=== PATIENT | female | born 1955 | race Caucasian/White ===

== ENCOUNTER 2020-10-19 14:58 | Observation (INO) | payer OTHER ==
[~2020-10-19] VITALS: Ht 167.6 cm; Wt 95.7 kg
[2020-10-19 15:05] VITALS: BP 117/72
[2020-10-19 16:00] LABS: ABSOLUTE NEUTROPHILS 14.2 thou/uL (1.4-8.2); BASOPHILS 0.3 % (0.0-2.0); EOSINOPHILS 0.2 % (0.0-3.0); HEMATOCRIT 35.5 % (37.0-47.0); HEMOGLOBIN 11.3 gm/dL (12.0-15.0); LYMPHOCYTES 4.6 % (24.0-44.0); MCHC 31.7 g/dL (28.0-37.0); MCV 88.4 fL (80.0-100.0); MONOCYTES 6.4 % (1.0-8.0); PLATELET COUNT 260 thou/uL (150-400); POLYS 88.5 % (36.0-66.0); RBC 4.01 mil/uL (4.20-5.00); RDW 14.9 % (10.5-14.5); WBC 16.1 thou/uL (4.0-11.0)
[2020-10-19 16:17] LABS: CALCIUM 8.8 mg/dL (8.5-10.1); CREATININE 0.9 mg/dL (0.6-1.0); POTASSIUM 4.3 mmol/L (3.5-5.1)
[2020-10-19 16:32] LABS: ALBUMIN 3.4 g/dL (3.4-5.0); TOTAL BILIRUBIN 0.5 mg/dL (0.2-1.0); TOTAL PROTEIN 7.1 g/dL (6.4-8.2)
[2020-10-19 17:46] LABS: URINE BILIRUBIN NEGATIVE (Negative); URINE BLOOD NEGATIVE (Negative); URINE CLARITY CLEAR; URINE COLOR YELLOW; URINE GLUCOSE-RANDOM* NEGATIVE (Negative); URINE KETONES 1+ (Negative); URINE NITRITE-REFLEX NEGATIVE (Negative); URINE PROTEIN (DIPSTICK) TRACE (Negative); URINE SPECIFIC GRAVITY 1.015 (1.005-1.035); URINE UROBILINOGEN 0.2 E.U./dl (0.2-1.0)
[2020-10-19 17:57] LABS: URINE LEUKOCYTES-REFLEX 3+ (Negative)
[2020-10-19 18:24] LABS: SQUAMOUS 0-3 Few /LPF (0-3)
[2020-10-19 18:25] LABS: BACTERIA-REFLEX 1-9 Few /HPF (None Seen); CASTS None Seen /LPF (None Seen); CRYSTALS None Seen /LPF (None Seen); URINE RBC 1-2 Rare /HPF (NONE SEEN); URINE WBC-REFLEX 6-15 Few /HPF (0-5)
[2020-10-19 19:12] VITALS: BP 124/64
[2020-10-19 19:41] LABS: MAGNESIUM 1.6 mg/dL (1.8-2.4); PHOSPHORUS 2.5 mg/dL (2.6-4.7)
[2020-10-19] MEDS ORDERED: LIPITOR 40 MG T40 M1 PO (20:09)
[2020-10-19] MEDS ORDERED: CARVEDILOL12.5 MG PO (20:09)
[2020-10-19] MEDS ORDERED: BASAGLAR K100 UNIT/1 SUBQ (20:09)
[2020-10-19] MEDS ORDERED: ESCITALOPRAM OX20 MG PO (20:09)
[2020-10-19] MEDS ORDERED: ASPIRIN EC325 M1 PO (20:10)
[2020-10-19] MEDS ORDERED: IRBESARTAN75 MG PO (20:10)
[2020-10-19] MEDS ORDERED: METFORMIN HCL1000 MG PO (20:10)
[2020-10-19 20:12] VITALS: BP 121/65
[2020-10-19 20:25] VITALS: BP 108/63
[2020-10-20] VITALS (7 sets, daily range): BP systolic 105–118; BP diastolic 41–66
[2020-10-20 03:59] LABS: HEMATOCRIT 30.1 % (37.0-47.0); HEMOGLOBIN 9.9 gm/dL (12.0-15.0); MCH 29.3 pg (26.0-34.0); MCV 88.7 fL (80.0-100.0); RBC 3.39 mil/uL (4.20-5.00); RDW 14.6 % (10.5-14.5); WBC 12.4 thou/uL (4.0-11.0)
--- NOTE | 2020-10-20 03:59 | NUR ---
PT ADMITTED TO ROOM 209 FROM ER, NO C/O PAIN IV FLUIDS STARTED AND MEDICATIONS GIVEN, PT UP ADLIB TO BR INDEPENDENTLY WITH OUT ANY DIFFICULTY, VSS, WILL CON'T TO MONITOR PER PPOC.
[2020-10-20 04:03] LABS: CALCIUM 8.2 mg/dL (8.5-10.1); POTASSIUM 4.2 mmol/L (3.5-5.1)
--- NOTE | 2020-10-20 12:48 | 2DMMODE ---
[facility] [address] [place] [address] 2 D/M-MODE ECHOCARDIOGRAM Name: LIZ SHAFER Room #: 209-P [facility] M.R.#: [id number] Admission: 10/19/20 Attend Phys: Shagufta Love MD Discharge: Date of : 55 Report #: [id number] THIS REPORT FOR: cc: SHIRA GROVES Physician not on staff Zaire Freeman MD ~ APPROVED REPORT Study performed: 10/20/2020 09:21:15 EXAM: Comprehensive 2D, Doppler, and color-flow Echocardiogram Patient Location: Bedside Room #: 209 Status: on-call BSA: 2.05 HR: 96 bpm BP: 118/54 mmHg Rhythm: NSR Other Information Study Quality: Adequate Risk Factors: Cardiac Risk Factors: Hyperlipidemia, DM Indications ICD: Congestive Heart Failure Elevated Troponin Cardiomyopathy 2D Dimensions IVSd: 8.82 (7-11mm) LVOT Diam: 20.00 (18-24mm) LVDd: 55.69 mm PWd: 9.63 (7-11mm) Ascending Ao: 29.04 (22-36mm) LVDs: 44.86 (25-40mm) Aortic Root: 26.06 mm LV Single Plane 4CH: 51.16 % LV Single Plane 2CH: 46.58 % Biplane EF: 45.5 % Volumes Left Atrial Volume (Systole) Single Plane 4CH: 66.70 mL Single Plane 2CH: 62.[address] [facility] [address] [place] [address] 2 D/M-MODE ECHOCARDIOGRAM Name: LIZ SHAFER Petty Room #: 209-P [facility] IN ..#: [id number] Admission: 10/19/20 Attend Phys: Shagufta Love, Discharge: Date of : 55 Report #: [id number] ESV Index: 34.00 mL/m2 Aortic Valve AoV Peak Go.: 1.49 m/s AO Peak Gr.: 8.85 mmHg LVOT Max P.35 mmHg LVOT Max V: 1.04 m/s CHRISTIN Vmax: 2.17 cm2 Mitral Valve E/A Ratio: 1.0 MV Decel. Time: 182.19 ms MV E Max Og.: 0.89 m/s MV A Og.: 0.85 m/s MV PHT: 52.84 ms IVRT: 62.28 ms TDI E/Lateral E': 14.83 E/Medial E': 12.71 Medial E' Og.: 0.07 m/s Lateral E' Og.: 0.06 m/s Pulmonary Valve PV Peak Og.: 1.00 m/s PV Peak Gr.: 3.99 mmHg Pulmonary Vein P Vein S: 0.73 m/s P Vein A: 0.31 m/s P Vein D: 0.58 m/s P Vein A Dur.: 90.0 msec P Vein S/D Ratio: 1.26 Tricuspid Valve TR Peak Og.: 2.62 m/s RAP Estimate: 7.00 mmHg TR Peak Gr.: 27.40 mmHg PA Pressure: 34.00 mmHg Left Ventricle The left ventricle is normal size. There is normal left ventricular wall thickness. Left ventricular systolic function is mildly decreased. LVEF is 45-50%. The left ventricular diastolic function is normal. Right Ventricle The right ventricle is normal size. The right ventricular systolic function is normal. Device lead is present in the right ventricle. Atria The left atrium size is normal. The right atrium size is normal. [facility] [address] [place] [address] 2 D/M-MODE ECHOCARDIOGRAM Name: LIZ SHAFER Room #: 209-P [facility] IN ..#: [id number] Admission: 10/19/20 Attend Phys: Shagufta Love, Discharge: Date of : 55 Report #: [id number] Device lead is present in the right atrium. Aortic Valve The aortic valve is normal in structure. No aortic regurgitation is present. There is no aortic valvular stenosis. Mitral Valve The mitral valve is normal in structure. Mild mitral regurgitation. No evidence of mitral valve stenosis. Tricuspid Valve The tricuspid valve is normal in structure. Trace tricuspid regurgitation. Pulmonary artery pressure is 34 mmHg. Pulmonic Valve The pulmonary valve is normal in structure. There is no pulmonic valvular regurgitation. Great Vessels The aortic root is normal in size. The ascending aorta is normal in size. IVC is normal in size and collapses >50% with inspiration. Pericardium There is no pericardial effusion. <Conclusion> The left ventricle is normal size. Left ventricular systolic function is mildly decreased. LVEF is 45-50%. The right ventricle is normal size. Device lead is present in the right ventricle. The left atrium size is normal. The right atrium size is normal. Device lead is present in the right atrium. The aortic valve is normal in structure. The mitral valve is normal in structure. Mild mitral regurgitation. The tricuspid valve is normal in structure. Trace tricuspid regurgitation. Pulmonary artery pressure is 34 mmHg. The pulmonary valve is normal in structure. [place] [id number] 2 D/M-MODE ECHOCARDIOGRAM Name: MINAL SHAFERCHRISTIAN Dove Room #: 209-P [facility] IN ..#: [id number] Admission: 10/19/20 Attend Phys: Shagufta Love, Discharge: Date of : 55 Report #: [id number] The aortic root is normal in size. There is no pericardial effusion. <ELECTRONICALLY SIGNED> By: Zaire Freeman MD 10/20/20 1248 1248 1248 Zaire Freeman MD /INF
--- NOTE | 2020-10-20 17:33 | NUR ---
ASSESSMENT CHARTED - MEDS PER APR - ACCUCHECKS COVERED PER SSI PRN. BRENDA DIET AND FLUIDS WITH NO CO'S OF NAUSEA - NO CO'S OF PAIN - NS COMPLETED X 1 BAG AND FLUIDS D/C'D ORDERED. PT UP AD ARYAN IN ROOM - CARDIOLOGY CONSULTED AND PATIENT SEEN. BNP 537. NO CO'S AT THE PRESENT TIME.
--- NOTE | 2020-10-21 03:54 | NUR ---
pt resting quietly in room, up adlib in room, no c/o pain, hopes to go home in am, vss, will con't to monitor per ppoc.
[2020-10-21 05:30] VITALS: BP 110/57
--- NOTE | 2020-10-21 07:38 | EKG ---
[address] [address] ELECTROCARDIOGRAM REPORT Name: SONILIZ Room #: 209-[facility].#: [id number] Admission: 10/19/20 Attend Phys: Shagufta Love MD Discharge: Date of : 55 Report #: [id number] [facility] ED Test Date: 2020-10-19 Test Time: 15:50:56 Pat Name: LIZ SHAFER Department: Room: 209 Gender: F Community Development Specialist: DRAKE NEGRON : 1955 Requested By: Eliot Rhodes Order Number: [id number] MD: Minor Roberson Measurements Intervals [place] Rate: 102 P: 52 MS: 125 QRS: -5 QRSD: 106 T: 64 QT: 356 QTc: 464 Interpretive Statements Sinus tachycardia Low voltage, extremity leads Baseline wander in lead(s) V3 No previous ECG available for comparison Electronically Signed On 10-21-2020 7:37:38 CDT by Minor Roberson [email or web address] <ELECTRONICALLY SIGNED> By: Minor Roberson MD, [facility] 10/21/20 0737 1550 49 Minor Roberson MD, FACC /EPI
[2020-10-21 08:25] VITALS: BP 128/57
[2020-10-21] MEDS ORDERED: PEPCID20 MG PO (12:59)
[2020-10-21] MEDS ORDERED: COREG6.25 MG PO (12:59)
[2020-10-21] MEDS ORDERED: VITAMIN B-121000 MCG PO (12:59)
[2020-10-21] MEDS ORDERED: FOLIC ACID1 MG PO (12:59)
[2020-10-21 15:21] VITALS: BP 128/57
== END 2020-10-21 16:12 | disposition home or self-care (01) ==
LOC: ER 14:58 → 2N 18:56 → EROBS 18:56 → 2N 20:13
PROVIDERS: Nurse Practitioner; ADMIT Internal Medicine; ATTEND Internal Medicine
DX: E86.0 Dehydration (principal); N39.0 Urinary tract infection, site not specified; Z20.822 Contact with and (suspected) exposure to COVID-19; R53.1 Weakness; R42 Dizziness and giddiness; R79.89 Other specified abnormal findings of blood chemistry; D51.9 Vitamin B12 deficiency anemia, unspecified; I42.9 Cardiomyopathy, unspecified; I11.0 Hypertensive heart disease with heart failure; I50.9 Heart failure, unspecified; R11.2 Nausea with vomiting, unspecified; D64.89 Other specified anemias; E11.9 Type 2 diabetes mellitus without complications; I48.20 Chronic atrial fibrillation, unspecified; F32.9 Major depressive disorder, single episode, unspecified; E78.5 Hyperlipidemia, unspecified; Z88.0 Allergy status to penicillin; Z79.84 Long term (current) use of oral hypoglycemic drugs; Z79.82 Long term (current) use of aspirin; Z79.899 Other long term (current) drug therapy
CPT/HCPCS: 10081